=== PATIENT | female | born 1975 | race Caucasian/White ===

== ENCOUNTER 2016-12-10 15:14 | Emergency (ER) | payer OTHER ==
[~2016-12-10] VITALS: Ht 162.6 cm; Wt 47.5 kg
[~2016-12-10 15:14] MED LIST: DOCU-144 PO; VICES
[2016-12-10 15:22] VITALS: Ht 162.6 cm; Wt 47.5 kg
[2016-12-10] MEDS ORDERED: GABA-526 PO (17:18)
[2016-12-10] MEDS ORDERED: LOSA50TA6 PO (17:19)
[2016-12-10] MEDS ORDERED: TRAM50TA2 PO (17:20)
[2016-12-10] MEDS ORDERED: CYCL-319 PO (17:20)
--- NOTE | 2016-12-10 17:27 | ERD ---
ER Documentation Chief Complaint Date/Time DATE: 12/10/16 TIME: 17:23 Chief Complaint needs refill for losartan 50mg; out of meds x2days HPI This is a 41-year-old female who presents emergency department today requesting refill on several medications. Patient states that she recently moved down to the area from [place] and is staying at [facility] with her mother and daughter. States that she would like a refill on her tramadol, gabapentin, Flexeril and losartan potassium. Denies any symptoms currently. ROS All systems reviewed and are negative except as per history of present illness. Medications Home Meds Active Scripts Tramadol HCl (Tramadol HCl) 50 Mg Tablet, 50 MG PO Q4 Y for PAIN, #20 TAB Prov:MARY LOU LOFTON PA-C 12/10/16 Cyclobenzaprine Hcl* (Cyclobenzaprine Hcl*) 10 Mg Tablet, 10 MG PO QHS, #7 TAB Prov:MARY LOU LOFTON PA-C 12/10/16 Losartan Potassium* (Losartan Potassium*) 50 Mg Tablet, 50 MG PO DAILY, #30 TAB Prov:MARY LOU LOFTON PA-C 12/10/16 Gabapentin* (Gabapentin*) 600 Mg Tablet, 600 MG PO BID, #60 TAB Prov:MARY LOU LOFTON PA-C 12/10/16 Docusate Sodium* (Colace*) 100 Mg Capsule, 100 MG PO BID, #60 CAP Prov:VALENTE RODRIGUEZ 09/15/15 Reported Medications Acetaminophen/Hydrocodone (Vicodin Es) 1 Tab Tab 07/03/10 Allergies Allergies: Coded Allergies: No Known Drug Allergy (Verified Allergy, Mild, 12/10/16) PMhx/Soc History of Surgery: Yes (OVARIAN CYSTECTOMY, ; DISC SURGERY ( NECK)) Anesthesia Reaction: No Hx Neurological Disorder: Yes Hx Respiratory Disorders: No Hx Cardiac Disorders: Yes (HYPERTENSION) Hx Psychiatric Problems: No Hx Miscellaneous Medical Probl: Yes (HEPA C, SPINAL STENOSIS, REFLUX ESOPHAGITIS; SCOLIOSIS) Hx Alcohol Use: No Hx Substance Use: No Hx Tobacco Use: No Smoking Status: Never smoker Physical Exam Vitals Vital Signs Date Time Temp Pulse Resp B/P Pulse Ox O2 Delivery O2 Flow Rate FiO2 12/10/16 15:22 98.4 97 16 131/73 97 Physical Exam Const: NAD Head: Atraumatic Eyes: Normal Conjunctiva ENT: Normal External Ears, Nose and Mouth. Neck: Full range of motion..~ No meningismus. Resp: Clear to auscultation bilaterally Cardio: Regular rate and rhythm, no murmurs Abd: Soft, non tender, non distended. Normal bowel sounds Skin: No petechiae or rashes Back: No midline or flank tenderness Ext: No cyanosis, or edema Neur: Awake and alert Psych: Normal Mood and Affect Procedures/MDM This a 41-year-old female who presents the emergency department today for refill of several medications. Patient had indicated that she recently moved down here from [facility] and is waiting for her new physician to get back to her about an appointment. Patient indicates that she has had high blood pressure in the past as well as chronic back pain for which she is supposed to have surgery in the future. Denies any symptoms currently. Patient was given a refill on her losartan potassium, gabapentin, short course of tramadol and Flexeril. Upon review of patient's medical record she has not been at this hospital or local [facility] with the exception of twice within the past 6 months. I did do a CURES report on the patient and it appears that the last time she received narcotics was September 01, 2016 in which she received [address] [place] and had only been getting that medication the 3 months prior. Patient was not requesting this at this time and I do not feel patient is exhibiting drug-seeking behavior. Patient was counseled for greater than 3 minutes on smoking sensation. She is also given a list of community resources should she not be able to get into her primary care doctor. At this time the patient is stable for discharge and outpatient management. Patient should follow up with their PCP in the next 1-2 days. They may return to the emergency department sooner for any persistent or worsening of symptoms. Patient understood and agreed with the plan. Departure Diagnosis: Primary Impression: Encounter for medication refill Condition: Fair Patient Instructions: Taking Medicine Safely Referrals: [facility] YOU HAVE RECEIVED A MEDICAL SCREENING EXAM AND THE RESULTS INDICATE THAT YOU DO NOT HAVE A CONDITION THAT REQUIRES URGENT TREATMENT IN THE EMERGENCY DEPARTMENT. FURTHER EVALUATION AND TREATMENT OF YOUR CONDITION CAN WAIT UNTIL YOU ARE SEEN IN YOUR DOCTORS OFFICE WITHIN THE NEXT 1-2 DAYS. IT IS YOUR RESPONSIBILITY TO MAKE AN APPOINTMENT FOR FOLOW-UP CARE. IF YOU HAVE A PRIMARY DOCTOR --you should call your primary doctor and schedule an appointment IF YOU DO NOT HAVE A PRIMARY DOCTOR YOU CAN CALL OUR PHYSICIAN REFERRAL HOTLINE AT IF YOU CAN NOT AFFORD TO SEE A PHYSICIAN YOU CAN CHOSE FROM THE FOLLOWING [facility] [address] [facility] [address] [facility] [facility] [address] [facility] [facility] [address] [facility]. [facility] [address] [facility]. [facility] [address] Additional Instructions: Call your primary care doctor TOMORROW for an appointment during the next 1-2 days.See the doctor sooner or return here if your condition worsens before your appointment time. Make an appt with your primary care doctor for your refills in the future. Take medications as prescribed MARY LOU LOFTON PA-C Dec 10, 2016 17:27
[2016-12-10 17:37] VITALS: BP 134/72; PULSE 72; RESP 16; TEMP 98.1
== END 2016-12-10 17:35 | disposition home or self-care (01) ==
LOC: FTE 15:14
DX: Z76.0 Encounter for issue of repeat prescription (principal); I10 Essential (primary) hypertension
CPT/HCPCS: 99281

== ENCOUNTER 2017-02-24 17:41 | Emergency (ER) | payer SELFPAY ==
[~2017-02-24] VITALS: Ht 152.4 cm; Wt 57.0 kg
[~2017-02-24 17:41] MED LIST changes: +CYCL-319 PO; +GABA-526 PO; +LOSA50TA6 PO; +TRAM50TA2 PO
[2017-02-24 17:48] VITALS: Ht 152.4 cm; Wt 57.0 kg
== END 2017-02-24 19:55 | disposition left against medical advice (07) ==
LOC: FTE 17:41
DX: Z53.21 Procedure and treatment not carried out due to patient leaving prior to being seen by health care provider (principal)